=== PATIENT | male | born 1950 | race Two or more races ===

== ENCOUNTER 2021-10-01 23:46 | Emergency (ER) | payer MEDICAID, MEDICARE ==
[~2021-10-01] VITALS: Ht 182.9 cm; Wt 63.0 kg
[2021-10-01 23:56] VITALS: BP 156/92
[2021-10-02] MEDS ORDERED: LORazepam 2 MG/ML VIAL IM ONE (00:15)
[2021-10-02] MEDS ORDERED: LIDOCAINE 2% 5 ML JELLY TP ONE (00:15)
[2021-10-02] MEDS ORDERED: DiphenhydrAMINE HCL 50 MG/ML VIAL IM ONE (00:15)
== END 2021-10-02 01:24 | disposition home or self-care (01) ==
LOC: EMS 23:48
DX: R25.2 Cramp and spasm (principal); R68.84 Jaw pain
CPT/HCPCS: 96372; 99283; J1200; J2060

== ENCOUNTER 2021-10-15 20:30 | Emergency (ER) | payer MEDICAID, MEDICARE ==
[~2021-10-15] VITALS: Ht 165.1 cm; Wt 58.0 kg
[2021-10-15 20:39] VITALS: BP 117/63
[2021-10-15] MEDS ORDERED: AMAN-24 PO (20:41)
[2021-10-15] MEDS ORDERED: SIMV-259 PO (20:41)
[2021-10-15] MEDS ORDERED: CARB-98 PO ×2 (20:41)
[2021-10-15] MEDS ORDERED: MORPHINE SULFATE 2 MG/ML SYRINGE IVP ONE (20:45)
[2021-10-15] MEDS ORDERED: LORazepam 2 MG/ML VIAL IVP ONE (20:45)
[2021-10-15] MEDS ORDERED: DiphenhydrAMINE HCL 50 MG/ML VIAL IVP ONE (20:45)
== END 2021-10-15 22:13 | disposition home or self-care (01) ==
LOC: EMS 20:33
DX: G25.9 Extrapyramidal and movement disorder, unspecified (principal); M62.838 Other muscle spasm; E78.00 Pure hypercholesterolemia, unspecified; Z86.73 Personal history of transient ischemic attack (TIA), and cerebral infarction without residual deficits
CPT/HCPCS: 96374; 96375; 99284; J1200; J2060; J2270

== ENCOUNTER 2022-02-09 14:17 | Emergency (ER) | payer MEDICARE ==
[~2022-02-09] VITALS: Ht 162.6 cm; Wt 56.8 kg
[~2022-02-09 14:17] MED LIST: AMAN-24 PO; CARB-98 PO; SIMV-259 PO
[2022-02-09] MEDS ORDERED: SODIUM CHLORIDE 0.9% 1,700 ML IV ONE (15:30)
[2022-02-09] MEDS ORDERED: 0.9% SODIUM CHLORIDE 10 ML SYRINGE IVP PRN (15:30)
[2022-02-09 15:45] LABS: BASOPHILS % (AUTO) 0.5 % (0.0-2.0); EOSINOPHILS % (AUTO) 0.3 % (1.0-6.0); HEMATOCRIT 40.7 % (41-53); HEMOGLOBIN 13.5 g/dL (13.5-17.5); LYMPHOCYTES # (AUTO) 0.8 K/uL (1.0-4.8); LYMPHOCYTES % (AUTO) 14.8 % (22.0-44.0); MEAN CORPUSCULAR HEMOGLOBIN 30.3 pg (26.0-34.0); MEAN CORPUSCULAR HGB CONC 33.3 G/dL (31.0-37.0); MEAN CORPUSCULAR VOLUME 91 fL (80-100); MONOCYTES # (AUTO) 0.4 K/uL (0.1-1.0); MONOCYTES % (AUTO) 7.4 % (2.0-9.0); NEUTROPHILS # (AUTO) 4.1 K/uL (1.8-7.7); PLATELET COUNT (AUTO) 157 K/uL (150-450); RED BLOOD CELL COUNT(AUTO) 4.47 MIL/uL (4.50-5.90); RED CELL DISTRIBUTION WIDTH 13.5 % (11.5-14.5)
[2022-02-09 15:51] LABS: COVID AG,FIA SOURCE NASAL SWAB
[2022-02-09 15:54] LABS: ANION GAP 10 mmol/L (8-16); CARBON DIOXIDE 28 mmol/L (22-29); CHLORIDE 104 mmol/L (98-107); CREATININE 0.88 mg/dL (0.60-1.30); GLUCOSE,RANDOM 114 mg/dL (70-110); POTASSIUM 3.4 mmol/L (3.5-5.1); SODIUM SERUM 142 mmol/L (136-145); UREA NITROGEN, BLOOD 20 mg/dL (7-18)
[2022-02-09 16:00] LABS: D-DIMER 1.54 mg/L FEU (0.00-0.50); GLOMERULAR FILTR. RATE CALC > 60 mL/min (>60); INR 1.1 (0.9-1.1); PROTHROMBIN TIME 11.5 SEC (9.4-11.6)
[2022-02-09] MEDS ORDERED: ONDANSETRON HCL 4 MG/2 ML VIAL IVP ONE (16:00)
[2022-02-09] MEDS ORDERED: MORPHINE SULFATE 4 MG/ML SYRINGE IVP ONE (16:00)
[2022-02-09] MEDS ORDERED: MORPHINE SULFATE 2 MG/ML SYRINGE IVP ONE (16:00)
[2022-02-09 16:01] LABS: ALANINE AMINOTRANSFERASE 7 U/L (12-78); ALBUMIN 3.9 g/dL (3.4-5.0); ALKALINE PHOSPHATASE 126 U/L (46-116); ASPARTATE AMINOTRANSFERASE 19 U/L (15-37); CREATINE KINASE, TOTAL ONLY 62 U/L (39-308); TOTAL PROTEIN, SERUM 7.6 g/dL (6.4-8.2)
[2022-02-09 16:02] LABS: LACTIC ACID 0.7 mmol/L (0.4-2.0)
[2022-02-09 16:04] LABS: B-TYPE NATRIURETIC PEPTIDE 32 pg/mL (0-100)
[2022-02-09 16:14] LABS: INFLUENZA TYPE A NEGATIVE FOR TYPE A (NEGATIVE); INFLUENZA TYPE B NEGATIVE FOR TYPE B (NEGATIVE)
[2022-02-09 16:25] LABS: BILIRUBIN,TOTAL 1.4 mg/dL (0.1-1.0)
[2022-02-09] MEDS ORDERED: ACETAMINOPHEN 325 MG TABLET PO PRN (17:30)
[2022-02-09] MEDS ORDERED: POTASSIUM CHL 10 MEQ/WATER 50 ML IV PRN (17:30)
[2022-02-09] MEDS ORDERED: POTASSIUM CHLORIDE 20 MEQ ER TABLET PO PRN (17:30)
[2022-02-09 17:48] LABS: C-REACTIVE PROTEIN QUANT 0.08 mg/dL (0.00-0.30)
[2022-02-09 18:27] LABS: APPEARANCE,URINE CLEAR (CLEAR); BILIRUBIN,URINE NEGATIVE (NEGATIVE); GLUCOSE, URINE (UA) NEGATIVE (NEGATIVE); LEUKOCYTE ESTERASE ,URINE MODERATE (NEGATIVE); NITRATE,URINE POSITIVE (NEGATIVE); OCCULT BLOOD,URINE NEGATIVE (NEGATIVE); PROTEIN,URINE TRACE mg/dL (NEGATIVE); SPECIFIC GRAVITIY, URINE 1.025 (1.003-1.030); UROBILINOGEN,URINE <=1.0 mg/dL (<=1.0)
[2022-02-09 18:35] LABS: BACTERIA,URINE Many /HPF (None Seen); RBC,URINE None Seen /HPF (0-2)
[2022-02-09] MEDS ORDERED: CefTRIAXone 1 GM/DEXTROSE 50 ML IV ONE (19:00)
[2022-02-09] MEDS ORDERED: CIPR500T10 PO (19:01)
[2022-02-09] MEDS ORDERED: SIMV-43 PO (19:04)
[2022-02-09] MEDS ORDERED: CARB1TAB38 PO (19:04)
[2022-02-09] MEDS ORDERED: LORA10TA7 PO (19:04)
[2022-02-09] MEDS ORDERED: FLUT16H NASAL (19:04)
[2022-02-09 19:09] VITALS: BP 146/82
[2022-02-09] MEDS ORDERED: CARBIDOPA/LEVODOPA 25-100 MG TABLET PO SCH (21:00)
[2022-02-09] MEDS ORDERED: CARBIDOPA/LEVODOPA/ENTACAPONE 25-100-200 MG TABLET PO SCH (21:00)
[2022-02-09] MEDS ORDERED: DOCUSATE SODIUM 100 MG CAPSULE PO SCH (21:00)
[2022-02-09] MEDS ORDERED: ATORVASTATIN CALCIUM 20 MG TABLET PO SCH (21:00)
[2022-02-09] MEDS ORDERED: ENTACAPONE 200 MG TABLET PO SCH (21:00)
[2022-02-09] MEDS ORDERED: AmLODIPine BESYLATE 5 MG TABLET PO SCH (21:00)
[2022-02-10] MEDS ORDERED: HEPARIN SODIUM,PORCINE 5,000 UNITS/ML VIAL SQ SCH
[2022-02-10] MEDS ORDERED: ASPIRIN 81 MG CHEWABLE TABLET PO SCH (09:00)
[2022-02-10] MEDS ORDERED: FAMOTIDINE 20 MG TABLET PO SCH (09:00)
== END 2022-02-09 19:26 | disposition left against medical advice (07) ==
LOC: EMS 14:18
DX: R53.83 Other fatigue (principal); R53.1 Weakness; G20 Parkinson's disease; S01.01XA Laceration without foreign body of scalp, initial encounter; N39.0 Urinary tract infection, site not specified; E78.00 Pure hypercholesterolemia, unspecified; Z86.73 Personal history of transient ischemic attack (TIA), and cerebral infarction without residual deficits; Z98.890 Other specified postprocedural states; Z20.822 Contact with and (suspected) exposure to COVID-19; W19.XXXA Unspecified fall, initial encounter; Y93.89 Activity, other specified; Y92.89 Other specified places as the place of occurrence of the external cause; Y99.8 Other external cause status
CPT/HCPCS: 99285; 70450; 96365; 71045; 96375; 96361; 87426; 80053; 81001; 82140; 82550; 83605; 83880; 84484; 85025; 85379; 85610; 85730; 86140; 87040; 87804; 36415; 87086; 87077; 72125; 93005; 84145; J0696; J2270; J2405; J7030